=== PATIENT | male | born 1970 | race Caucasian/White ===

== ENCOUNTER → 2017-03-23 | Outpatient (REF) ==
[~2017-03-23] MED LIST: MOTRIN800 MG PO; NO HOME MEDICATIONS; VICODIN 5/5001 UDTAB PO
== END ==
LOC: ZLAB.WCH 18:02
DX: Z01.89 Encounter for other specified special examinations (principal)

== ENCOUNTER → 2022-05-07 | Outpatient (CLI) | payer OTHER | LOC: COL.RAD 12:10 | DX: M25.511 Pain in right shoulder (principal); G89.29 Other chronic pain ==